=== PATIENT | female | born 1990 | race Two or more races ===

== ENCOUNTER 2025-02-18 12:46 | Emergency (ER) | payer MEDICAID, OTHER ==
[~2025-02-18] VITALS: Ht 180.3 cm; Wt 61.1 kg
[2025-02-18 13:04] VITALS: BP 147/90; PULSE 114; RESP 18; TEMP 98.3; O2SAT 98
[2025-02-18 14:22] LABS: Urine Protein, UAD Negative (Negative)
[2025-02-18 14:22] LABS: Hematocrit 37.2 % (36.0-46.0); Hemoglobin 12.5 g/dL (12.2-16.2); Mean Corpuscular Hemoglobin 29.4 pg (28.0-32.0); Mean Corpuscular Volume 87.1 fL (80.0-100.0); Nucleated Red Blood Cells % 0.0 %
[2025-02-18 14:32] LABS: Chloride 99 mmol/L (98-107); Sodium 139 mmol/L (136-145)
[2025-02-18 14:33] LABS: Anion Gap 7 (5-15); Calcium 10.2 mg/dL (8.7-10.4)
[2025-02-18 14:38] LABS: BUN/Creatinine Ratio 8.5 (10.0-20.0); Glucose 77 mg/dL (74-106)
[2025-02-18 14:39] LABS: Blood Urea Nitrogen 6 mg/dL (9-23); Carbon Dioxide 33 mmol/L (20-31); Potassium 3.5 mmol/L (3.5-5.1)
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
[2025-02-18] MEDS: IOHEXOL 300 MG/ML 100ML BOTTLE IJ ONE (16:50)
[2025-02-18] MEDS: ACETAMINOPHEN 500 MG TAB or CAP PO ONE (16:51)
[2025-02-18] MEDS: IBUPROFEN 600 MG TAB PO ONE (16:51)
== END 2025-02-18 17:37 | disposition left against medical advice (07) ==
LOC: ER 12:46
DX: S61.511A Laceration without foreign body of right wrist, initial encounter (principal); J44.89 Other specified chronic obstructive pulmonary disease; I10 Essential (primary) hypertension; J45.909 Unspecified asthma, uncomplicated; X58.XXXA Exposure to other specified factors, initial encounter; Y93.89 Activity, other specified; Y92.89 Other specified places as the place of occurrence of the external cause; Y99.8 Other external cause status
CPT/HCPCS: 36415; 80048; 81001; 81025; 83605; 85025; 99283; Q9967